=== PATIENT | male | born 1985 | race Caucasian/White ===

== ENCOUNTER 2017-03-07 01:14 | Emergency (ER) | payer OTHER ==
[~2017-03-07] VITALS: Ht 180.3 cm; Wt 83.9 kg
[~2017-03-07 01:14] MED LIST: ADVAIR 250-501 EACH INH; AUGMENTIN 875-1 EACH PO; BACTRIM DS 8001 TAB PO; BACTROBAN OINT.15 GM TOP; CLEOCIN HCL300 MG PO; DIFLUCAN200 M1 PO; DOXYCYCLINE HY100 M4 PO; GUAIFENESIN-COD10 ML PO; HYDROXYZINE HCL50 M1 PO; PREDNISONE10 M2 PO; PREDNISONE50 M1 PO; VENTOLIN HFA18 GM PO
[2017-03-07 01:29] VITALS: BP 137/98
--- NOTE | 2017-03-07 02:54 | ED SKIN/ALLERGY COMPLAINT ---
History of Present Illness General Chief Complaint: Skin Rash/ Abcess Stated Complaint: "PER PT I HAVE STAFF INFECTION I KNOW I DO" Source: patient Exam Limitations: no limitations Vital Signs & Intake/Output Vital Signs & Intake/Output Vital Signs Date Time Temp Pulse Resp B/P B/P Pulse O2 O2 Flow FiO2 Mean Ox Delivery Rate 03/07 0252 Room Air 03/07 0129 98.5 81 18 137/98 96 Room Air Allergies Coded Allergies: NO KNOWN ALLERGIES (03/14/16) Reconcile Medications Sulfamethoxazole/Trimethoprim (Bactrim Ds Tablet) 800 MG-160 MG TABLET 1 TAB PO BID skin infection Triage Note: TRIAGE: PATIENT TO ER REPORTS "CAME IN EARLIER TODAY BUT THE WAIT WAS TOO LEE SO I LEFT." PATIENT REPORTS "STAPH INFECTION FOR PAST FEW MONTHS, I'VE HAD IT BEFORE AND I KNOW WHAT IT IS. LITTLE BUMPS ALL OVER THE PLACE. I JUST NEED DOXYCYCLINE." DENIES OTHER COMPLAINTS. Triage Nurses Notes Reviewed? yes Onset: Gradual Duration: day(s):, waxing and waning Timing: recent history Severity: mild Location: torso Possible Factors: "I have a staph infection." Modifying Factors: Worsens With: scratching. Associated Symptoms: "I get these red bumps and they're painful." HPI: [id number] gentleman presents with red bumps on his trunk and arms for the past several days. He states that, "I have a staff infection... I've had it before.... I get better with antibiotics." He notes no fever chills purulent drainage lymphangitic streaking. He is otherwise well and has no other concerns. Past History Travel History Traveled to [place] past 21 day No Medical History Any Pertinent Medical History? 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 No Review of Systems Review of Systems Constitutional: Reports: no symptoms. EENTM: Reports: no symptoms. Respiratory: Reports: no symptoms. Cardiovascular: Reports: no symptoms. GI: Reports: no symptoms. Genitourinary: Reports: no symptoms. Musculoskeletal: Reports: no symptoms. Skin: Reports: no symptoms. Neurological/Psychological: Reports: no symptoms. Hematologic/Endocrine: Reports: no symptoms. Immunologic/Allergic: Reports: no symptoms. All Other Systems: Reviewed and Negative Physical Exam Physical Exam General Appearance: well developed/nourished, mild distress Head: atraumatic Neck: normal inspection Respiratory: no respiratory distress Skin: 4-5 mm papules with surrounding 2 cm areas of induration. No purulent drainage. Minimally tender to palpation. Lungs are on the trunk and upper extremities Progress Differential Diagnosis: urticaria versus cellulitis versus carbuncles versus other Plan of Care: I prescribed patient with Bactrim and encouraged bleach bath and close follow-up with his primary care doctor. Departure Departure Disposition: HOME OR SELF CARE Condition: Stable Clinical Impression Primary Impression: Recurrent carbunculosis Referrals: PATIENT HAS NO PRIMARY CARE DR (PCP/Family) Departure Forms: Customer Survey General Discharge Information Prescriptions: Current Visit Scripts Sulfamethoxazole/Trimethoprim (Bactrim Ds Tablet) 1 TAB PO BID #20 TAB
[2017-03-07] MEDS ORDERED: BACTRIM DS TAB1 EACH PO (02:55)
== END 2017-03-07 03:08 ==
LOC: ERH 01:14
DX: L02.239 Carbuncle of trunk, unspecified (principal); L02.433 Carbuncle of right upper limb; L02.434 Carbuncle of left upper limb